=== PATIENT | female | born 1995 | race Two or more races ===

== ENCOUNTER 2020-11-20 15:45 | Emergency (ER) | payer SELFPAY ==
[~2020-11-20] VITALS: Ht 180.3 cm; Wt 59.0 kg
[2020-11-20 15:51] VITALS: BP_SYST 118
[2020-11-20] MEDS: LevALBUTEROL HCL 1.25 MG/0.5 ML *CONC.* VIAL.NEB (XOPENEX CONC.) INH ONE (16:39)
[2020-11-20] MEDS: predniSONE 20 MG TABLET PO ONE (18:28)
[2020-11-20] MEDS ORDERED: FLUT16SP16 NS (19:05)
[2020-11-20 19:19] VITALS: BP_SYST 120
== END 2020-11-20 19:21 | disposition home or self-care (01) ==
LOC: SED 15:45
DX: R06.02 Shortness of breath (principal)
CPT/HCPCS: 94640; 99283; J7512; J7612